=== PATIENT | female | born 1985 | race Caucasian/White ===

== ENCOUNTER → 2018-04-11 14:00 | Outpatient (CLI) | payer OTHER, SELFPAY | DX: Z23 Encounter for immunization (principal) | CPT/HCPCS: 90471; 90686 ==

== ENCOUNTER → 2018-05-04 12:47 | Outpatient (REF) | payer OTHER, SELFPAY ==
[2018-05-04 13:08] LABS: Influenza A and B by PCR Rapid Negative (Negative)
== END ==
LOC: LAB 12:47
PROVIDERS: Visit Provider Family Medicine
DX: R50.9 Fever, unspecified (principal)
CPT/HCPCS: 87400

== ENCOUNTER → 2019-03-30 12:03 | Outpatient (CLI) | payer OTHER, SELFPAY | DX: Z23 Encounter for immunization (principal) | CPT/HCPCS: 90471; 90686 ==

== ENCOUNTER → 2019-05-02 12:28 | Outpatient (CLI) | payer OTHER, SELFPAY ==
--- NOTE | 2019-05-02 | DI.RAD.S_ITS ---
PROCEDURE: XR FOOT LT MIN 3V INDICATIONS: xr lt 5th tarsal pain TECHNIQUE: A 3 views of the foot were acquired. COMPARISON: None. FINDINGS: Bones: No fractures or dislocations. No suspicious bony lesions. Soft tissues: No tibiotalar joint effusion. Achilles tendon appears normal. IMPRESSION: Normal for age, source of current pain after running symptoms is not seen. Dictated by: Torrey Farrell M.D. on 05/02/2019 at 15:37 Approved by: Torrey Farrell M.D. on 05/02/2019 at 15:37
== END ==
PROVIDERS: PCP Family Medicine; Visit Provider Family Medicine
DX: M79.672 Pain in left foot (principal)
CPT/HCPCS: 73630

== ENCOUNTER → 2020-03-13 10:01 | Outpatient (CLI) | payer OTHER, MEDICAID, SELFPAY ==
--- NOTE | 2020-03-13 | DI.US.S_ITS ---
PROCEDURE: US ABDOMEN COMPLETE INDICATIONS: abd pain TECHNIQUE: Real-time scanning was performed of the abdominal and retroperitoneal organs, with image documentation. COMPARISON: [facility], CT, KIDNEY/ URETER/BLADDER, 03/29/2015, 14:20. [facility], US, ABDOMEN COMPLETE, 07/04/2012, 11:26. FINDINGS: Liver: Liver is normal in size and homogeneous in echotexture. Gallbladder: No findings of gallstones or sludge are seen. The gallbladder wall is not thickened, measuring 3 mm or less. No specific pericholecystic fluid is seen. The sonographic Mattson sign is negative. Biliary ducts: Intrahepatic bile ducts are non-dilated. Extrahepatic bile duct caliber measures 5 mm. Normal is 6-7 mm or less in diameter, or 10 mm or less post-cholecystectomy. Pancreas: Visualized portions of the pancreas are sonographically normal. Spleen: Spleen is normal in size and homogeneous in echotexture. Kidneys: Kidneys are normal in size and echotexture. Right kidney measures 10.4 cm long; left kidney measures 9.4 cm long. No hydronephrosis or nephrolithiasis. No solid masses. At the superior aspect of the left kidney, there is a 1.5 cm hypoechoic lesion seen. Aorta: Visualized aorta is normal in caliber at less than 3 cm. Iliacs: Proximal common iliac arteries are normal in caliber at less than 2.5 cm. IVC: Intrahepatic inferior vena cava is patent. Miscellaneous: No free abdominal fluid. IMPRESSION: No imaging explanation is found for this patient's presenting history of abdominal pain. The gallbladder demonstrates a normal sonographic appearance. No biliary dilatation is seen. 1.5 cm hypoechoic lesion seen involving the left kidney. This may represent a complicated cyst. Three-month follow-up ultrasound versus renal mass protocol CT would be recommended for further evaluation. Dictated by: Chema Perry M.D. on 03/13/2020 at 14:51 Approved by: Chema Perry M.D. on 03/13/2020 at 14:53
--- NOTE | 2020-03-13 | DI.RAD.S_ITS ---
PROCEDURE: FL UPPER GI W AIR INDICATIONS: ABD PAIN COMPARISON: None. FINDINGS: KUB: Preprocedural adaptive physical educator film demonstrates a normal bowel gas pattern. No suspicious abdominal calcifications. Visualized solid organ contours appear normal. Bony structures appear unremarkable. Esophagus: Esophageal mucosa is normal on air-contrast views. On single-contrast views, there is normal esophageal peristalsis. No strictures, extrinsic mass effects, or diverticula. There is a very small sliding hiatal hernia and only a small degree of spontaneous and elicited gastroesophageal reflux was observed. There is normal transit of a calibrated barium tablet through the esophagus. Stomach: The stomach is normally distensible, with normal rugal fold thickness. No mucosal masses or ulcers. Pylorus and duodenal bulb appear normal in morphology. Duodenal folds are normal in thickness as well. IMPRESSION: Small sliding hiatal hernia, no evidence of esophageal erosion or dysmotility. Mild gastroesophageal reflux was observed associated with this finding. Dictated by: Torrey Farrell M.D. on 03/13/2020 at 11:02 Approved by: Torrey Farrell M.D. on 03/13/2020 at 11:18
== END ==
PROVIDERS: PCP Family Medicine; Referring Provider Family Medicine; Visit Provider Family Medicine
DX: R10.13 Epigastric pain (principal); N28.9 Disorder of kidney and ureter, unspecified; K21.9 Gastro-esophageal reflux disease without esophagitis; K44.9 Diaphragmatic hernia without obstruction or gangrene
CPT/HCPCS: 74246; 76700

== ENCOUNTER → 2020-05-08 09:39 | Outpatient (CLI) | payer OTHER, MEDICAID, SELFPAY ==
[2020-05-08 10:56] LABS: COVID19 -Nasal RAPID Negative (Negative)
== END ==
PROVIDERS: PCP Family Medicine; Visit Provider Physician Assistant
DX: Z11.59 Encounter for screening for other viral diseases (principal)
CPT/HCPCS: 87635

== ENCOUNTER 2020-05-10 13:24 | Day surgery (SDC) | payer OTHER, MEDICAID, SELFPAY ==
--- NOTE | 2020-05-10 | PATH_ITS ---
[facility] Accession Number: [id number] . 01 Material submitted: . PART A: duodenum - DUODENAL BIOPSY PART B: gastrointestinal site - ANTRUM BIOPSY PART C: gastrointestinal site - FUNDUS BIOPSY PART D: gastrointestinal site - BODY BIOPSY PART E: esophagus - Z-LINE BIOPSY 0600 PART F: esophagus - Z-LINE BIOPSY 0300 PART G: esophagus - Z-LINE BIOPSY 0900 . 02 Diagnosis: A. Duodenal Biopsy: Duodenal mucosa with no diagnostic abnormality. Negative for active inflammation, features of sprue, dysplasia, or malignancy. . B. Stomach, Antrum, Biopsy: Antral mucosa with mild chronic gastritis. Negative for Helicobacter by immunohistochemistry. Negative for intestinal metaplasia. Negative for dysplasia or malignancy. . C-D. Stomach, Fundus, Body, Biopsies: Body type mucosa with no diagnostic abnormality. Negative for Helicobacter by immunohistochemistry. Negative for intestinal metaplasia. Negative for dysplasia and malignancy. . E-F. Z-Line, 6 o'clock, 3 o'clock, Biopsies: Squamocolumnar junctional mucosa with no diagnostic abnormality. Negative for intestinal metaplasia. Negative for dysplasia and malignancy. . G. Z-Line, 9 o'clock, Biopsy: Columnar mucosa with no diagnostic abnormality. Negative for intestinal metaplasia. Negative for dysplasia and malignancy. [facility] 05/14/2020 1631 Local . 02 Electronically signed: . Shruthi Bernard MD, Pathologist NPI- [id number] . 01 Gross description: . Part A: DUODENAL BIOPSY: Received in formalin is 1 fragment(s) of tobin, soft tissue measuring 0.4 x 0.3 x 0.2 cm submitted entirely in 1 cassette(s) Part B: ANTRUM BIOPSY: Received in formalin is 1 fragment(s) of tobin, soft tissue measuring 0.4 x 0.2 x 0.1 cm submitted entirely in 1 cassette(s) Part C: FUNDUS BIOPSY: Received in formalin is 1 fragment(s) of tobin, soft tissue measuring 0.5 x 0.3 x 0.3 cm submitted entirely in 1 cassette(s) Part D: BODY BIOPSY: Received in formalin are 2 fragment(s) of tobin, soft tissue measuring 0.5 x 0.4 x 0.1 cm to 0.3 x 0.2 x 0.1 cm submitted entirely in 1 cassette(s) Part E: Z-LINE BIOPSY 0600: Received in formalin is 1 fragment(s) of tobin, soft tissue measuring 0.3 x 0.2 x 0.2 cm submitted entirely in 1 cassette(s) Part F: Z-LINE BIOPSY 0300: Received in formalin is 1 fragment(s) of tobin, soft tissue measuring 0.3 x 0.3 x 0.2 cm submitted entirely in 1 cassette(s) Part G: Z-LINE BIOPSY 0900: Received in formalin is 1 fragment(s) of tobin, soft tissue measuring 0.2 x 0.2 x 0.2 cm submitted entirely in 1 cassette(s) /Q 05/11/2020 0705 Local . 02 Microscopic: . B-D. Immunohistochemical stains were performed to evaluate for Helicobacter organisms on blocks B, C and D and are all negative. The control stain showed appropriate reactivity. . * This test was developed and its performance characteristics determined by [facility]. It has not been cleared or approved by the U.S. Food and Drug Administration. The FDA has determined that such clearance or approval is not necessary. This test is used for clinical purposes. It should not be regarded as investigational or for research. . 02 Pathologist provided ICD-10: R10.13 . 02 CPT . 829397, 770805, 464367, 726006, 429646, 824133, 448946, [id number] Performed at: 01 [facility] [address] [place] [address], [place], [place] [id number] MD Ricco Encarnacion MD Phone: [phone] Performed at: [address] [place] [id number] [place], [place] [id number] MD Shruthi Bernard MD Phone: [phone]
--- NOTE | 2020-05-10 11:54 | PM.HP.1 ---
History of Present Illness History of Present Illness Date Patient Seen: 05/10/20 [place] [facility] [place]: 34 Years Old Female patient of Dr. Gonzalez's seen today complaining of intermittent epigastric pain x2 months. Pain is burning in nature and associated with nausea. She sometimes feels that something is stuck in her chest. Pain happens 2 hours after she eats and lasts for 15 minutes to several hours. Eating usually helps the pain. Has become more consistent in the last few weeks. She does have a past medical history of the same and saw Dr. Motley, GI in 2017 and was treated with omeprazole with complete resolution. She just restarted limiting her coffee and is not drinking alcohol. Denies melena or hematochezia. Dr. Gonzalez restarted her omeprazole 2 months prior to presentation and she is taking 20 mg p.o. twice daily; taking it correctly on an empty stomach. Abdominal ultrasound on 03/13/2020 showed a 1.5 cm hypoechoic lesion in left kidney possibly a complicated cyst. 3-month surveillance ultrasound recommended, renal mass protocol. Overall health issues have been otherwise stable, including no major cardiac events for at least 6 weeks. Past Medical History: migraine; 2017 otitis media w/effusion; 2017, 2015 GERD; Dr. Motley; 2016 Cystic acne Genital herpes Anxiety Past Surgical History: PE tubes Oral surgery Family History: Reviewed history from 06/22/2017 and no changes required: Father: Alcoholism, Diabetes, Hep C Mother: Alcoholism, hysterectomy;pre CA cells, Drowned 2002 (patient 16 at the time) Siblings: sister with questionable anxiety. [place] in [facility] [place] [facility] [place] MGM 86 yo of old age Maunts: anxiety x 2 No bipolar Social History: Marital Status: Single Children: Kaz Ortega (2011) Occupation: [employer] Education: College bought house with partner, Branden < 1 acohol drink per day Patient History Family & Social History Tobacco & Substance use: Smoking Status Never smoker Meds Home Medications and Allergies Home Medications Medication Instructions Recorded Confirmed Type hydroxyzine HCl 10 mg tablet 10 mg PO PRN PRN 5 Days #40 tab 10/18/17 05/10/20 History norethindrone acetate 1.5 1.5 tab PO 4-6XD 63 Days #63 tab 10/18/17 05/10/20 History mg-ethinyl estradiol 30 mcg tablet alprazolam 0.25 mg tablet 0.25 mg PO BID-TID PRN 12/27/17 05/10/20 History multivitamin 1 tab PO DAILY 12/27/17 05/10/20 History buspirone 10 mg PO BID 05/10/20 05/10/20 History omeprazole 20 mg PO BID 05/10/20 05/10/20 History Allergies Allergy/AdvReac Type Severity Reaction Status Date / Time citalopram [From Celexa] AdvReac Intermediate Increased Verified 05/10/20 13:51 Anxiety Review of Systems Review of Systems ROS: Yes All systems reviewed with the patient and are negative except as otherwise documented Exam Narrative Exam Narrative: General: well developed, well nourished, in no acute distress, Head: normocephalic and atraumatic, Neck: supple, without mass or thyromegaly, Lungs: normal respiratory effort, clear bilaterally to auscultation, Heart: normal rate and regular rhythm, no murmurs, rubs, gallops, or clicks, Abdomen: Positive bowel sounds. No hepatosplenomegaly. Midepigastric tenderness but no guarding or rebound Pulses: carotid and pedal pulses are intact, Extremities: no clubbing, cyanosis, edema, or deformity noted, Skin: No rashes Assessment & Plan Assessment & Plan narrative: 1. Abdominal pain, epigastric Plan: EGD The nature and character of the procedure as well as anticipated results were discussed. The possibility of not completing the procedure was also discussed. Possible complications including aspiration pneumonia, bleeding, perforation and reaction to medications either for sedation or preparation and missed lesions were discussed. Questions were answered and proceeding to the colonoscopy was elected. Informed consent signed. I sincerely appreciate the referral allowing me to participate in this patient's care. Please contact me with any questions or concerns.
--- NOTE | 2020-05-10 11:58 | P.OP.ENDO_ITS ---
Operative Date/Time/Diagnoses Date of procedure: 05/10/20 Procedure Notes SCOAP/Timeout: 2:36 p.m. Procedure in detail: ENDOSCOPIST: Rosenda Sandoval MD Sedation RN: Demetrio Boland RN Sedation start time: 2:37 p.m. Sedation end time: 3:04 p.m. PROCEDURE: EGD with biopsy REFERRING PROVIDER: Dr. Gonzalez INDICATIONS: 1. Epigastric abdominal pain MEDICATION: Incremental doses of Versed and fentanyl until an appropriate level of sedation was achieved. ASA Ratin DURATION OF PROCEDURE: 9 minutes. COMPLICATIONS: None. LIMITATIONS: None EXTENT OF PROCEDURE: Third portion of the Duodenum. PROCEDURE: The high-definition gastroduodenoscope was introduced into the posterior oropharynx under direct vision after Hurricaine spray, noted IV sedation, and proper informed consent. The esophagus was identified and intubated under direct visualization. The scope was quickly passed through the esophagus and into the fundus of the stomach. A clear fundal pool was aspirated. The scope was then advanced to the antrum and the pylorus was identified. The scope was passed through the pylorus into the second and third portions of the duodenum. No abnormalities were noted in the duodenum, duodenal bulb or pyloric channel. Random biopsies taken x2. The antrum was erythematous and friable, targeted biopsy taken x2. J maneuver was produced. No abnormalities were noted of the proximal body, fundus or cardia. Targeted biopsy taken x2. A small hiatal hernia was noted. Scope was broken out of the J maneuver and the remainder of the stomach was carefully inspected upon withdrawal and was friable, targeted biopsy taken x2. The stomach was carefully deflated of all air on withdrawal. The distal esophagus was carefully inspected and Z-line was noted to be irregular, 3 quadrant biopsies taken. Top of the gastric folds noted at 47 cm from the incisors; circumferential extent of the metaplasia was 46 cm from the incisors; maximal extent of the metaplasia was 46 cm from the incisors. The remainder of the esophagus was normal upon withdrawal. The larynx and vocal cords appeared to be unremarkable. IMPRESSION: 1. Gastritis 2. Hiatal hernia, small 2. Endoscopically suspected esophageal mucosa, C1M1 PLAN: 1. Follow-up in clinic status post pathology results. The possibility of missed lesion including a malignancy was discussed prior with the patient. Potential alarm symptoms have been discussed and should be reported by the pat ient immediately.
[2020-05-10 13:43] VITALS: BP 120/78; PULSE 93; RESP 18; TEMP 36.9; O2SAT 98; BMI 23.3
[2020-05-10] MEDS: LACTATED RINGERS 1,000 ML 200 ML IV (13:58)
[2020-05-10 14:06] VITALS: BMI 23.3
[2020-05-10] MEDS: LIDOCAINE 4% SOLN 50 ML 20 ML TOP (14:36)
[2020-05-10] MEDS: LIDOCAINE JELLY 2% 5 ML 1 APPLIC TOP (14:36)
[2020-05-10] MEDS: fentaNYL 250 MCG/5 ML INJ IV (14:54)
[2020-05-10] MEDS: MIDAZOLAM 5 MG/5 ML VIAL IV (14:54)
[2020-05-10 15:10] VITALS: BP 128/50; PULSE 89; RESP 23; TEMP 36.2; O2SAT 97
[2020-05-10 15:15] VITALS: BP 113/71; PULSE 83; RESP 17; TEMP 35.7; O2SAT 97
[2020-05-10 15:19] VITALS: BP 126/77; PULSE 86; RESP 13; TEMP 37; O2SAT 98
[2020-05-10 15:24] VITALS: BP 122/86; PULSE 76; RESP 15; TEMP 37.2; O2SAT 98
[2020-05-10 15:25] VITALS: BP 118/78; PULSE 84; RESP 13; TEMP 36.7; O2SAT 98
== END 2020-05-10 15:25 | disposition home or self-care (01) ==
PROVIDERS: PCP Family Medicine; Referring Provider Family Medicine; Visit Provider Student in an Organized Health Care Education/Training Program
PROC: 0DJ08ZZ Inspection of Upper Intestinal Tract, Via Natural or Artificial Opening Endoscopic (ICD-10-PCS; CPT 43235; principal; 2020-05-10 14:30)
DX: K29.50 Unspecified chronic gastritis without bleeding (principal); K44.9 Diaphragmatic hernia without obstruction or gangrene
CPT/HCPCS: 43239; J2250; J3010

== ENCOUNTER → 2020-07-04 08:31 | Outpatient (CLI) | payer OTHER, MEDICAID, SELFPAY ==
[2020-07-04] MEDS: COVID-19 VACC #1, MRNA(MOD) 100 MCG/0.5 ML VIAL IM (08:35)
== END ==
PROVIDERS: PCP Family Medicine; Visit Provider Internal Medicine
DX: Z23 Encounter for immunization (principal)
CPT/HCPCS: 0011A; 91301

== ENCOUNTER → 2020-08-01 08:26 | Outpatient (CLI) | payer OTHER, MEDICAID, SELFPAY ==
[2020-08-01] MEDS: COVID-19 VACC #2, MRNA(MOD) 100 MCG/0.5 ML VIAL IM (08:32)
== END ==
PROVIDERS: PCP Family Medicine; Visit Provider Internal Medicine
DX: Z23 Encounter for immunization (principal)
CPT/HCPCS: 0012A; 91301

== ENCOUNTER → 2020-12-06 09:28 | Outpatient (CLI) | payer OTHER, MEDICAID, SELFPAY ==
--- NOTE | 2020-12-06 | DI.US.S_ITS ---
PROCEDURE: US OB <= 14 WEEKS FETUS INDICATIONS: INITIAL SIZING AND DATING OUTSIDE/PRIOR DATING DATA: Last menstrual period (LMP): 10/11/2020 LMP-based estimated date of delivery (JOSEFA): 07/18/2021. First dating scan (date and location): 12/06/2020. Estimated date of delivery (JOSEFA) from first dating scan: 07/19/2021. TECHNIQUE: Real-time scanning was performed of the fetus and maternal pelvic organs, with image documentation. Endovaginal scanning was also performed to better visualize the fetus and maternal ovaries. COMPARISON: None. FINDINGS: Embryo: 1.5 cm corresponding to 7 weeks 6 days. Small perigestational sac bleed site measuring 2.0 x 0.6 x 1.3 cm. Heart rate: 163 Measurement variability in dating: +/- 4 weeks by LMP, +/- 7 days by mean sac diameter (use before 6 weeks gestation if crown-rump length not able to be measured), +/- 5 days by crown-rump length (up to 8 weeks 6 days gestation), +/- 7 days by crown-rump length (up to 13 weeks 6 days gestation). Maternal organs: Ovaries within normal limits . IMPRESSION: 7 week 6 day single living IUP. Dictated by: Ted VALENCIA Interpreted: Simone Pina MD on 12/06/2020 at 11:42 Transcribed by: NICOLE on 12/06/2020 at 11:44 Approved by: Simone Pina M.D. on 12/06/2020 at 13:33
== END ==
PROVIDERS: PCP Family Medicine; Referring Provider Family Medicine; Visit Provider Family Medicine
DX: Z36.87 Encounter for antenatal screening for uncertain dates (principal); Z3A.01 Less than 8 weeks gestation of pregnancy
CPT/HCPCS: 76801; 76817

== ENCOUNTER → 2021-02-07 09:28 | Outpatient (CLI) | payer OTHER, MEDICAID, SELFPAY ==
--- NOTE | 2021-02-07 | DI.US.S_ITS ---
PROCEDURE: US OB LIMITED INDICATIONS: RULE OUT PLACENTA DETACHMENT. HISTORY OF LABOR. OUTSIDE/PRIOR DATING DATA: Last menstrual period (LMP): 10/11/20 . LMP-based estimated date of delivery (JOSEFA): 07/18/21 . First dating scan (date and location): 12/06/20 . Estimated date of delivery (JOSEFA) from first dating scan: 07/19/21. TECHNIQUE: Real-time scanning was performed of the fetus for biophysical profile, with image documentation. Color and pulse Doppler interrogation was also performed of the umbilical artery near its insertion into the placenta. Endovaginal scanning: Performed COMPARISON: [facility], US OB <= 14 WEEKS FETUS, 12/06/2020, 9:12. [facility], US ABDOMEN COMPLETE, 03/13/2020, 10:51. [facility], [facility], 08/26/2011, 15:36. FINDINGS: Anterior uterine fibroid measures 1.2 x 1.1 x 0.7 cm. General: A single living intrauterine gestation is present. Presentation: Vertex. Placenta: Placental position is anterior and there is complete placenta previa. Amniotic fluid index: 12.5 cm, normal range is 5-24 cm. heart rate: 153 beats per minute. Maternal cervical canal: 6.0 cm long. Normal lower limit is 2.5 cm. Estimated gestational age from initial scan: 16 weeks 6 days . Single wrap nuchal cord incidentally noted. Umbilical artery Doppler: Measures 2.4, 3.0, 3.1 . IMPRESSION: Single living intrauterine fetus in vertex presentation Complete placenta previa. Recommend follow-up. Nuchal cord. Recommend follow-up. No evidence of placental abruption. Incidentally noted anterior uterine fibroid. Findings (including all critical results) and recommendations were personally telephoned and discussed with Dr. Perez none on 02-07-21 12:34 Dictated by: Fabrizio Cruz M.D. on 02/07/2021 at 12:29 Approved by: Fabrizio Cruz M.D. on 02/07/2021 at 12:35
== END ==
PROVIDERS: PCP Family Medicine; Referring Provider Family Medicine; Visit Provider Family Medicine
DX: Z36.86 Encounter for antenatal screening for cervical length (principal); O44.02 Complete placenta previa NOS or without hemorrhage, second trimester; O34.12 Maternal care for benign tumor of corpus uteri, second trimester; D25.9 Leiomyoma of uterus, unspecified; Z3A.16 16 weeks gestation of pregnancy; Z87.51 Personal history of pre-term labor
CPT/HCPCS: 76815; 76817

== ENCOUNTER → 2021-05-20 07:55 | Outpatient (CLI) | payer OTHER, MEDICAID, SELFPAY ==
--- NOTE | 2021-05-20 07:56 | DI.US.S_ITS ---
PROCEDURE: US OB LIMITED INDICATIONS: GROWTH. FOLLOW UP NUCHAL CORD AND COMPLETE PREVIA. OUTSIDE/PRIOR DATING DATA: Last menstrual period (LMP): 10/11/2020 LMP-based estimated date of delivery (JOSEFA): 07/18/2021. First dating scan (date and location): 12/06/2020. Estimated date of delivery (JOSEFA) from first dating scan: 07/19/2021 The calculations are made using the ultrasound JOSEFA of 07/19/2021. TECHNIQUE: Real-time scanning was performed of the fetus, with image documentation and biometric measurements. Endovaginal scanning: No COMPARISON: Outside Facility, , OB > 14 WEEKS, 02/28/2021, 9:15. [facility], , OB LIMITED, 02/07/2021, 10:31. FINDINGS: General: A single living intrauterine gestation is present. Presentation: Vertex. Placenta: Placental position is anterior , without previa. Amniotic fluid index: 16.3 cm, normal range is 5-24 cm. heart rate: 137 beats per minute. Maternal cervical canal: 5.3 cm long. Normal lower limit is 2.5 cm. biometrics: Biparietal diameter: 30 weeks 1 day Head circumference: 29 weeks 5 days Abdominal circumference: 31 weeks 2 days Femur length: 30 weeks Clinically estimated gestational age: 31 weeks 3 days Composite gestational age from present scan: 30 weeks 2 days Estimated weight and percentile: 16 18 g; 17 percentile Other: No nuchal cord identified. IMPRESSION: 1. Single living IUP redemonstrated and interval growth is normal. 2. No nuchal cord and complete placenta previa has resolved. We strive to produce accurate, complete, and clear reports of imaging services. To assist us in improving patient care, this report was composed using standard report templates and voice recognition software. Therefore, it may contain abnormal punctuation, insertions and/or omissions. Occasional wrong-word or sound-alike substitutions may occur. Though we review the report and make efforts to correct it, we do recommend that the report be read carefully in proper context to recognize any text inaccuracies. Dictated by: Ted VALENCIA Interpreted: Simone Pina MD on 05/20/2021 at 9:42 Transcribed by: NICOLE on 05/20/2021 at 9:45 Approved by: Simone Pina M.D. on 05/20/2021 at 12:12
== END ==
PROVIDERS: PCP Family Medicine; Referring Provider Family Medicine; Visit Provider Family Medicine
DX: Z36.89 Encounter for other specified antenatal screening (principal); O44.13 Complete placenta previa with hemorrhage, third trimester; Z3A.30 30 weeks gestation of pregnancy
CPT/HCPCS: 76815

== ENCOUNTER 2021-05-29 13:41 | Outpatient (CLI) | payer OTHER, MEDICAID, SELFPAY | END 2021-05-29 14:26 | disposition home or self-care (01) | LOC: LABOR 14:11 → OB 06-02 09:45 | PROVIDERS: PCP Family Medicine; Referring Provider Family Medicine; Visit Provider Family Medicine | DX: O60.03 Preterm labor without delivery, third trimester (principal); Z3A.33 33 weeks gestation of pregnancy | CPT/HCPCS: 59025; G0378; G0379 ==

== ENCOUNTER → 2021-06-23 14:20 | Outpatient (CLI) | payer OTHER, MEDICAID, SELFPAY ==
[2021-06-24 12:10] LABS: Strep Grp B PCR NEG for Grp B Strep
== END ==
PROVIDERS: PCP Family Medicine; Referring Provider Obstetrics & Gynecology; Visit Provider Obstetrics & Gynecology
DX: Z34.83 Encounter for supervision of other normal pregnancy, third trimester (principal); Z3A.36 36 weeks gestation of pregnancy
CPT/HCPCS: 87653

== ENCOUNTER 2021-07-04 11:48 | Outpatient (CLI) | payer OTHER, MEDICAID, SELFPAY ==
--- NOTE | 2021-07-04 12:24 | PM.OBTRLD ---
Visit Information Visit Information Date of evaluation: 07/04/21 Primary OB Provider: Neda Zimmerman On-call OB Provider: Bijal Arguello Reason for Evaluation: Yes rupture of membranes Comments/Additional reasons for admission: 35yo at 38w2d here for concern for ROM. Feeling baby move regularly. No contractions, vaginal bleeding. [facility] Medical History (Updated 07/04/21 @ 12:26 by Bijal Arguello MD) Herpes (~2018) Hiatal hernia (~2019) delivery, delivered labor Surgical History (Updated 05/22/21 @ 10:26 by Samreen Brennan, RN) H/O endoscopy (~2019) [place] teeth extracted Family History (Updated 05/22/21 @ 10:31 by Samreen Brennan, RN) Father Diabetes mellitus Melanoma Mother Ovarian cancer History of hysterectomy Sister Anxiety Grandfather Hypertension Hyperlipidemia Hx of CABG Myocardial infarct Grandmother Cancer Hyperlipidemia Grandmother Leukemia Grandfather Family history unknown Social History marital status: unmarried,living together number of children: 1 household members: significant other and children (2 step children and 1 child of their own.) lives independently: Yes caregiver/support person: No housing: house pets and animals: Yes (2 cats, 1 dog: aware/safe.) education level: college (Just finished nursing degree. 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 ) substance use type: does not use during the past year weight has: increased > 10 lbs well-balanced diet: daily or most days daily servings fruits/ve or more times/day (lots: her favorite snacks are produce. ) caffeine: Yes (1 cup of tea.) Type(s) of exercise: decreased ROM & activity (modified bedrest for labor.) frequency: daily Evaluation Evaluation Baseline heart rate: 130 Variability: Moderate (11-25) monitor accelerations: Present Monitor Decelerations: Absent Non-invasive Membranes Rupture Test: negative Diagnosis, Plan/Disposition Final Diagnosis (1) 38 weeks gestation of : Status: Acute Plan/Disposition Plan: 35yo at 38w2d here for concern for ROM. Amniosure negative. NST reactive. Initial BP slightly elevated, normalized on repeat. Stable for d/c home. OB Disposition: home
== END 2021-07-04 12:35 ==
LOC: LABOR 12:34 → OB 07-09 13:59
PROVIDERS: PCP Family Medicine; Referring Provider Obstetrics & Gynecology; Visit Provider Obstetrics & Gynecology
DX: Z03.71 Encounter for suspected problem with amniotic cavity and membrane ruled out (principal); O47.1 False labor at or after 37 completed weeks of gestation; Z3A.39 39 weeks gestation of pregnancy
CPT/HCPCS: 59025; 84112; G0378; G0379

== ENCOUNTER 2021-07-09 02:02 | Inpatient (IN) | payer OTHER, MEDICAID, SELFPAY ==
[2021-07-09 04:08] LABS: COVID19 - ADMIT (NP swab/PCR) Negative (Negative)
[2021-07-09] MEDS: fentaNYL 100 MCG/2 ML INJ IV (04:55)
[2021-07-09 05:14] LABS: Add Manual Diff / Slide Review NO; Basophils Absolute Auto 0 /uL (0-100); Basophils Percent Auto 0.2 % (0-2); Eosinophils Absolute Auto 100 /uL (0-450); Eosinophils Percent Auto 0.4 % (2-4); Hematocrit 39.2 % (36-46); Hemoglobin 13.3 g/dL (12.0-16.0); Lymphocytes Absolute Auto 1800 /uL (1100-4500); Lymphocytes Percent Auto 8.4 % (25-40); Mean Corpuscular HGB Conc 33.8 % (30-36); Mean Corpuscular Hemoglobin 30.6 PG (26-34); Mean Corpuscular Volume 90.6 fL (80-100); Monocytes Absolute Auto 1500 /uL (0-900); Monocytes Percent Auto 6.7 % (3-14); Neutrophils Absolute Auto 18400 /uL (1500-7000); Neutrophils Percent Auto 84.3 % (50-75); Platelet Count 227 X10^3/uL (150-400); Red Blood Cell Count 4.33 X10^6/uL (4.0-5.2); Red Cell Distribution Width 13.6 % (11.6-14.8); White Blood Cell Count 21.8 X10^3/uL (4.5-11.0)
[2021-07-09] MEDS: LACTATED RINGERS 1,000 ML 100 ML IV ×2 (05:30→09:45)
--- NOTE | 2021-07-09 05:43 | PM.AN.REGBLK ---
[facility] Pre-procedure Procedure: Continuous Lumbar Epidural for L&D Attending OB provider: Neda Zimmerman PMH/ROS narrative: term labor, h/o labor on modified bed rest, no other complications ASA Class: II Labs: Hct 39.2 % (36-46) 07/09/21 04:00 Plt Count 227 X10^3/uL (150-400) 07/09/21 04:00 Medications: Current Medications Generic Name Dose Route Start Last Admin Trade Name Freq PRN Reason Stop Dose Admin Carboprost Tromethamine 250 mcg 07/09/21 04:15 Carboprost 250 Mcg/Ml Ampul IM Q90M PRN Bleeding Fentanyl 100 mcg 07/09/21 04:15 07/09/21 04:55 Fentanyl 100 Mcg/2 Ml Inj IV 100 mcg Q1H PRN Administration Pain, Severe (7-10) Lactated Ringer's 1,000 mls @ 100 mls/hr 07/09/21 04:15 Lactated Ringers IV CONT KASH Oxytocin/Lactated Ringer's 30 unit in 500 mls @ 200 mls/hr 07/09/21 04:15 Oxytocin Premix IV CONT PRN Bleeding Protocol Tranexamic Acid 1,000 mg/ 100 mls @ 200 mls/hr 07/09/21 04:15 Sodium Chloride IV NOW PRN Bleeding Methylergonovine Maleate 0.2 mg 07/09/21 04:15 Methylergonovine 0.2 Mg Tablet PO Q6HR PRN Heavy Bleeding Methylergonovine Maleate 0.2 mg 07/09/21 04:15 Methylergonovine 0.2 Mg/Ml Vial IM NOW PRN Bleeding Misoprostol 800 mcg 07/09/21 04:15 Misoprostol 200 Mcg Tablet GA NOW PRN Bleeding Misoprostol 1,000 mcg 07/09/21 04:15 Misoprostol 200 Mcg Tablet GA NOW PRN Bleeding Misoprostol 400 mcg 07/09/21 04:15 Misoprostol 200 Mcg Tablet SL NOW PRN Bleeding Naloxone HCl 0.2 mg 07/09/21 04:15 Naloxone 0.4 Mg/Ml Vial IV Q2MIN PRN Opiate Reversal Oxytocin 10 unit 07/09/21 04:15 Oxytocin 10 Unit/Ml Vial IM NOW PRN Bleeding Allergies: Allergies Allergy/AdvReac Type Severity Reaction Status Date / Time citalopram [From Celexa] AdvReac Intermediate Increased Verified 07/08/21 15:27 Anxiety Procedure Insertion date: 07/09/21 Insertion time: 06:01 Prep/Local: betadine x3 and 1% lidocaine Interspace: L3-4 Patient position: sitting Needle: 18 gauge Hustead (CSE: 27g Pencan through Hustead, clear CSF, 1mL 0.25% MPF bupiv) Loss of resistance with: saline BHARAT at (cm): 4 Catheter placed at SKIN (cm): 9 Catheter in SPACE (cm): 5 Insertion: No CSF, No Blood, No Paresthesia with insertion, No Paresthesia with injection and No Test dose reaction Initial Medications TEST DOSE time: 05:57 TEST DOSE: 1.5% lidocaine with epinephrine 1:200k (mL): 557 BOLUS DOSE time: 06:10 BOLUS DOSE (mL): 3 BOLUS DOSE med: other (infusate) Infusion INFUSION: 0.125% bupivacaine and with fentanyl 2 mcg/mL Initial rate (mL/hr): 6 Subsequent interventions: 1020: clinician bolus 5mL, increased rate from 6 to 8ml/h for R sided moderate discomfort with contractions. Pt repositioned R side down. Post-procedure Anesthesia time START: 05:47 Anesthesia time END: 15:21 Post-procedure Anesthesia Assessment: Yes CV function: HR/BP stable, Yes Resp function: RR/sat/airway adequate, Yes Mental status appropriate and No Anesthesia complications
[2021-07-09 05:57] VITALS: BP 139/90
[2021-07-09] MEDS: ACETAMINOPHEN 325 MG TABLET 650 MG PO ×2 (10:37→17:44)
[2021-07-09] MEDS: OXYTOCIN PREMIX 30 UNIT/500 ML PLAST..BAG IV (13:04)
[2021-07-09] MEDS: FENT 2MCG/ML BUPIV 0.125% EPI 200 MCG/100 ML PLAST..BAG 8 MCG EPIDURAL (13:54)
[2021-07-09] MEDS: DERMOPLAST SPRAY 20% 60 ML 1 SPRAY TOP (17:44)
[2021-07-09] MEDS: IBUPROFEN 600 MG TABLET PO (17:45)
--- NOTE | 2021-07-09 17:49 | P.HPOB_ITS ---
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 Estimated Delivery Date Method Current WG Current Estimate 07/16/21 LMP (Certain) 39w 0d Estimated Gestational Age (weeks): 39 : 3 Para: 1 care: good care, initiated at week # (9), number of visits (12) and pounds weight gain (34) Dating criteria OB: LMP confirmed by 1st trimester US Ultrasounds: normal 1st trimester US and normal mid trimester US Obstetrical complications: none Medical complications OB: none Preadmission Labs Last OB Lab Results: Blood Type O Negative 07/09/21 04:00 07/09/21 Antibody Screen Negative 07/09/21 04:00 07/09/21 Hematocrit 39.2 % (36-46) 07/09/21 04:00 07/09/21 Hemoglobin 13.3 g/dL (12.0-16.0) 07/09/21 04:00 07/09/21 Group B Streptococcus (PCR) Neg for grp b strep 06/23/21 14:20 06/23/21 -: Chlamydia screen: negative, Gonorrhea screen: negative and Urine: negative -: PAP smear: Normal Genetic Screens: Quad screen: Normal External Labs Blood type OB HPI: 0 (-) negative HCT: 39 -: Antibody screen: negative, HBsAG: negative, HIV: negative, RPR/VDLR: negative, Chlamydia screen: negative, Gonorrhea screen: negative, GBS status: negative and Urine: negative -: Rubella: immune and Varicella: immune HCAB: negative PAP: Normal Genetic Screens: Quad screen: Normal Prior (ies) Past Pregnancies Del. Date GA/Weeks Labor Lgth Wt Sex Route Outcome Anesthesia Place Delv Breastfeed Preg Comp Name 08/05/04 elective elective 09/10/11 35 12 5 lb 4 oz Male vaginal live - none [facility] 18 mos. delivery labor [place] Delivery Date: 08/05/04 Last Updated by: Samreen Brennan R.N. Surgical termination, no complications. Delivery Date: 09/10/11 Last Updated by: Samreen Brennan R.N. On full bedrest r/t PTL starting ~31wga. SROM at 35wks, transferred d/t gestation. Labor progressed well until pitocin augmention later. Baby & mom did well at . Evaluation Evaluation Baseline heart rate: 135 Variability: Moderate (11-25) monitor accelerations: Present Monitor Decelerations: Absent Contraction Frequency (minutes): 3 Uterine Contraction Intensity: Strong/Firm Status: Category l Dilation (cm): 8 Effacement (%): 85 station: -1 Position of cervix: posterior Consistency: soft PFSH Medical History (Updated 07/07/21 @ 09:38 by Neda Zimmerman MD) Herpes (~2018) Hiatal hernia (~2019) delivery, delivered labor Surgical History (Updated 05/22/21 @ 10:26 by Samreen Brennan RN) H/O endoscopy (~2019) [place] teeth extracted Family History (Updated 05/22/21 @ 10:31 by Samreen Brennan RN) Father Diabetes mellitus Melanoma Mother Ovarian cancer History of hysterectomy Sister Anxiety Grandfather Hypertension Hyperlipidemia Hx of CABG Myocardial infarct Grandmother Cancer Hyperlipidemia Grandmother Leukemia Grandfather Family history unknown Social History marital status: unmarried,living together number of children: 1 household members: significant other and children (2 step children and 1 child of their own.) lives independently: Yes caregiver/support person: No housing: house pets and animals: Yes (2 cats, 1 dog: aware/safe.) education level: college (Just finished nursing degree. 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 ) substance use type: does not use during the past year weight has: increased > 10 lbs well-balanced diet: daily or most days daily servings fruits/ve or more times/day (lots: her favorite snacks are produce. ) caffeine: Yes (1 cup of tea.) Type(s) of exercise: decreased ROM & activity (modified bedrest for labor.) frequency: daily Meds Home Medications and Allergies Home Medications Medication Instructions Recorded Confirmed Type hydroxyprogesterone cap(ppres) 250 250 mg IM QWEEK 05/22/21 07/09/21 History mg/mL IM oil prenat.vits,francisco j,[id number] 1 tab PO DAILY 05/22/21 07/09/21 History valacyclovir 500 mg tablet 500 mg PO DAILY 05/22/21 07/09/21 History Allergies Allergy/AdvReac Type Severity Reaction Status Date / Time citalopram [From Celexa] AdvReac Intermediate Increased Verified 07/08/21 15:27 Anxiety OB Exam Narrative Exam Narrative: Generally: Patient comfortable with epidural Fundal height: 39 cm Estimated weight: 7-1/2 lb Extremities: No edema Objective Labs Result Diagrams: 07/09/21 04:00 Labs: Laboratory Results - last 24 hr 07/09/21 07/09/21 07/09/21 03:27 04:00 04:00 WBC 21.8 H RBC 4.33 Hgb 13.3 Hct 39.2 MCV 90.6 MCH 30.6 MCHC 33.8 RDW 13.6 Plt Count 227 Neut % (Auto) 84.3 H Lymph % (Auto) 8.4 L [place] % (Auto) 6.7 Eos % (Auto) 0.4 L Baso % (Auto) 0.2 Neut # (Auto) 07826 H Lymph # (Auto) 1800 [place] # (Auto) 1500 H Eos # (Auto) 100 Baso # (Auto) 0 SARS-CoV-2 (PCR) Negative Blood Type O Negative Antibody Screen Negative Assessment and Plan Assessment and Plan Assessment and Plan narrative: Assessment: 35-year-old 3 para 1 at 39 weeks gestation in active labor Spontaneous rupture of membranes at 3:15 a.m. Comfortable with epidural Plan: Expected management to spontaneous vaginal to the Time Spent with Patient Total time spent with greater than 50% in coordination of care (as documented) at patient's floor/unit and/or counseling patient:: 15-24 minutes
--- NOTE | 2021-07-09 17:54 | PM.OBPNLAB ---
Date/Time Date Patient Seen: 07/09/21 Time Patient Seen: 08:50 Pain Control Pain control: epidural Pelvic Exam Dilation (cm): 9 Effacement (%): 85 station: -1 Contractions Monitor mode: External Contraction frequency (min): 3 Contraction pattern: Regular Contraction intensity: Strong/Firm Status status: Category l Heart Rate Baseline: 135 Monitor Accelerations: Present Monitor Decelerations: Absent Monitor Variability: Moderate Assessment and Plan Assessment: active labor Comments: Side to side position changes
--- NOTE | 2021-07-09 17:57 | PM.OBPNLAB ---
Date/Time Date Patient Seen: 07/09/21 Time Patient Seen: 12:45 Pain Control Pain control: epidural Pelvic Exam Dilation (cm): 9 Effacement (%): 90 station: 0 Contractions Contractions on admission: regular Monitor mode: External Contraction frequency (min): 3 Contraction pattern: Regular Contraction intensity: Strong/Firm Status status: Category l Heart Rate Baseline: 135 Monitor Accelerations: Present Monitor Decelerations: Absent Monitor Variability: Moderate Assessment and Plan Assessment: active labor Plan: begin patient augmentation
--- NOTE | 2021-07-09 17:58 | P.PCNOB_ITS ---
Labor & Delivery Delivery date: 07/09/21 Intrapartal Events: Prolonged Active Phase Cervical ripening method: none Induction method: none Delivery augmentation: pitocin Delivery monitor: external FHT and external uterine Route of delivery: Episiotomy description: None L&D Laceration Description: Vaginal - 1st Degree and Superficial (left labial) Delivery repair: chromic Estimated blood loss (mL): 100 Anesthesia Type: Epidural Complications: None Narrative: Patient complete and pushed for little over an hour. At 3:21 p.m., a live female infant delivered spontaneously over an intact perineum. No nuchal cord. The remainder of the body delivered with a little difficulty due to tight vaginal introitus. The infant was placed on mom's abdomen. The cord was double clamped and cut after it stopped pulsing. Cord bloods were obtained. The placenta delivered intact at 1531. Pitocin was given in the IV fluids. The fundus was massaged to firm. A first-degree vaginal laceration and a sup erficial left labial laceration were repaired in the usual fashion with chromic suture. Apgars 9 at 1 minute and 9 at 5 minutes. Weight 6 lb 14 oz. . Epidural analgesia. Mom and stable to recovery. Baby 1: Infant gender: Female Presentation: vertex Position: Right Occiput Anterior Placenta delivery description: Spontaneous Cord Vessel Description: 3 Vessels and Clamped/Cut score (1 min): 9 score (5 min): 9 weight: 6 lb 14 oz Plan for aftercare: Routine care
[2021-07-10] MEDS: ACETAMINOPHEN 325 MG TABLET 650 MG PO ×2 (01:25→10:18)
[2021-07-10] MEDS: IBUPROFEN 600 MG TABLET PO ×3 (01:26→14:32)
[2021-07-10 07:48] LABS: Hematocrit 35.6 % (36-46); Hemoglobin 12.1 g/dL (12.0-16.0)
[2021-07-10] MEDS: DOCUSATE 100 MG CAPSULE PO (08:36)
[2021-07-10] MEDS: PRENATAL VIT,CALC/IRON/FOLIC 1 TABLET 1 TAB PO (08:36)
[2021-07-10] MEDS: RHO(D) IMMUNE GLOBULIN 1,500 UNIT SYRINGE 1500 UNIT IM (10:18)
[2021-07-10 16:31] VITALS: BP 110/83; PULSE 94; RESP 16; TEMP 37
--- NOTE | 2021-07-11 12:48 | P.DS_ITS ---
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 She had a spontaneous rupture of membranes several hours after arrival. She received an epidural for pain management. She received Pitocin augmentation of labor. She had a prolonged first stage of labor but progressed to complete dilation and pushed for 1 hour and 20 minutes. She had a spontaneous vaginal delivery without complication. Her course was unremarkable and she was discharged home on day # 1. Peripartum Data Delivery Method: Natural Vaginal Laceration Description: Vaginal - 1st Degree and Labial (Left, superficial) Episiotomy description: None Procedures: Epidural analgesia Pitocin augmentation of labor Spontaneous vaginal delivery Vaginal and labial laceration repair complications: none [place] 1: Gender: Female Disposition of : home Status at Discharge Cognitive/behavioral status at discharge: oriented Functional status at discharge: independent ambulation Overall status at discharge: patient is progressing back to baseline Time Spent with Patient Time attestation: Total time spent providing and/or coordinating discharge services: Time spent: Less than 30 minutes Objective Labs Result Diagrams: 07/10/21 06:49 Exam Narrative Exam Narrative: Generally: Patient is sitting up in bed, holding infant, no acute distress Fundus: Firm at U -1 Extremities: Trace edema, negative [place] Discharge Plan Discharge Plan Patient Disposition: Home Provider Discharge Comment: Call with fever, chills or bleeding vaginally more than a pad in an hour Discharge orders & Medications Prescriptions: Continued prenat.vits,francisco j,[id number] Tablet 1 tab PO DAILY 0RF Discontinued valacyclovir 500 mg tablet 500 mg PO DAILY 0RF hydroxyprogesterone cap(ppres) 250 mg/mL oil 250 mg IM QWEEK 0RF Follow up/Referrals: Neda Zimmerman MD [Physician] - (Your 6 week follow up appointment with Dr. Zimmerman is scheduled for August 18 @ 2:30pm.) Diet/Activity/Treatments Diet: Regular Activity: No intercourse Skin/Wound/Dressing Care Report to your healthcare provider any signs of infection, such as:: chills, fever, increased pain and unusual drainage Visit Report/Discharge Packet Instructions: DI for Labor and Delivery, Vaginal Stand Alone Forms: Discharge: Care Discharge Data Primary Care Provider: Pebbles Gonzalez
== END 2021-07-10 17:37 | disposition home or self-care (01) | DRG 560 ==
PROVIDERS: Family Medicine; Admitting Provider Obstetrics & Gynecology; PCP Family Medicine; Referring Provider Obstetrics & Gynecology; Visit Provider Obstetrics & Gynecology
DX: O98.52 Other viral diseases complicating childbirth (principal); B00.9 Herpesviral infection, unspecified; O70.0 First degree perineal laceration during delivery; Z37.0 Single live birth; O63.0 Prolonged first stage (of labor); Z3A.39 39 weeks gestation of pregnancy; Z20.822 Contact with and (suspected) exposure to COVID-19
CPT/HCPCS: 01967; 36415; 59050; 59409; 76815; 85014; 85018; 85025; 85461; 86850; 86900; 86901; 87635; C9803; G0379; J2590; J2790; J3010

== ENCOUNTER → 2022-07-28 06:47 | Outpatient (CLI) | payer OTHER, MEDICAID, SELFPAY ==
--- NOTE | 2022-07-28 | DI.US.S_ITS ---
PROCEDURE: US PELVIC COMPLETE INDICATIONS: 1 YEAR POST ; DUB X 1 MONTH TECHNIQUE: Real-time scanning was performed of the pelvic organs, with image documentation. Additional endovaginal scanning was necessary due to incomplete visualization of the adnexal and endometrial structures by transabdominal scanning. COMPARISON: None. FINDINGS: Uterus: Uterus is anteverted and normal in size at 8.0 x 5.0 x 7.0 cm. The myometrium is homogeneous. The endometrium measures 6.6 mm combined thickness. Ovaries: The right ovary measures 1.8 x 2.9 x 2.2 cm, with a calculated ovarian volume of 5.9 cc. The left ovary measures 1.9 x 2.2 x 1.1 cm, with a calculated ovarian volume of 2.4 cc. The ovaries have a normal sonographic appearance. Less than 12 follicles can be seen in each ovary. No adnexal masses are seen. There is a right simple cyst which measures 1.9 cm in diameter. Other: No pathologic free abdominal or pelvic fluid. IMPRESSION: 1. Right ovarian simple cyst which is within physiologic limits in a premenopausal female. 2. No sonographic abnormalities to explain patient's symptoms. We strive to produce accurate, complete, and clear reports of imaging services. To assist us in improving patient care, this report was composed using standard report templates and voice recognition software. Therefore, it may contain abnormal punctuation, insertions and/or omissions. Occasional wrong-word or sound-alike substitutions may occur. Though we review the report and make efforts to correct it, we do recommend that the report be read carefully in proper context to recognize any text inaccuracies. Dictated by: Maria D Nelson M.D. on 07/28/2022 at 8:34 Approved by: Maria D Nelson M.D. on 07/28/2022 at 8:36
== END ==
PROVIDERS: PCP Family Medicine; Referring Provider Family Medicine; Visit Provider Family Medicine
DX: N92.1 Excessive and frequent menstruation with irregular cycle (principal); N83.291 Other ovarian cyst, right side
CPT/HCPCS: 76830; 76856

== ENCOUNTER → 2023-04-14 | Outpatient (CLI) | payer OTHER, SELFPAY | PROVIDERS: Referring Provider Family Medicine; Visit Provider Family Medicine | DX: Z23 Encounter for immunization (principal) | CPT/HCPCS: 90471; 90686 ==

== ENCOUNTER → 2023-07-23 06:58 | Outpatient (CLI) | payer OTHER, MEDICAID, SELFPAY | LOC: RESP 06:59 | PROVIDERS: PCP Family Medicine; Referring Provider Family Medicine; Visit Provider Family Medicine | DX: R07.89 Other chest pain (principal); J98.8 Other specified respiratory disorders | CPT/HCPCS: 94060; 94726; 94729 ==

== ENCOUNTER 2023-08-02 12:27 | Emergency (ER) | payer OTHER, MEDICAID, SELFPAY ==
[2023-08-02] VITALS (10 sets, daily range): BP systolic 125–158; BP diastolic 58–105; PULSE 88–116; RESP 9–43; TEMP 36.7; O2SAT 95–100; BMI 24.7
--- NOTE | 2023-08-02 12:41 | DI.RAD.S_ITS ---
PROCEDURE: XR CHEST 1V INDICATIONS: Shortness of breath TECHNIQUE: One view of the chest was acquired. COMPARISON: [facility], , CHEST 2 VIEW, 07/17/2014, 15:16. FINDINGS: Surgical changes and devices: None. Lungs and pleura: Lungs are clear. No pleural effusions or pneumothorax. Mediastinum: Mediastinal contours appear normal. Heart size is normal. Bones and chest wall: No suspicious bony lesions. Overlying soft tissues appear unremarkable. IMPRESSION: No acute cardiopulmonary abnormalities or focal airspace disease. Dictated by: Domo Muller M.D. on 08/02/2023 at 12:50 Approved by: Domo Muller M.D. on 08/02/2023 at 12:50
[2023-08-02 13:12] LABS: Add Manual Diff / Slide Review NO; Basophils Absolute Auto 100 /uL (0-100); Basophils Percent Auto 0.7 % (0-2); Eosinophils Absolute Auto 100 /uL (0-450); Eosinophils Percent Auto 0.9 % (2-4); Hematocrit 43.3 % (36-46); Hemoglobin 14.6 g/dL (12.0-16.0); Lymphocytes Absolute Auto 2800 /uL (1100-4500); Lymphocytes Percent Auto 36.9 % (25-40); Mean Corpuscular HGB Conc 33.7 % (30-36); Mean Corpuscular Hemoglobin 30.5 PG (26-34); Mean Corpuscular Volume 90.4 fL (80-100); Monocytes Absolute Auto 600 /uL (0-900); Monocytes Percent Auto 7.6 % (3-14); Neutrophils Absolute Auto 4000 /uL (1500-7000); Neutrophils Percent Auto 53.9 % (50-75); Platelet Count 261 X10^3/uL (150-400); Red Blood Cell Count 4.79 X10^6/uL (4.0-5.2); Red Cell Distribution Width 12.7 % (11.6-14.8); White Blood Cell Count 7.5 X10^3/uL (4.5-11.0)
[2023-08-02 13:18] LABS: Prothrombin Time 11.1 SECONDS (9.4-12.5)
[2023-08-02 13:25] LABS: Alanine Aminotransferase 16 IU/L (<35); Albumin 4.8 g/dL (3.5-5.0); Albumin Globulin Ratio 1.3 (1.0-2.8); Alkaline Phosphatase 36 U/L (38-126); Aspartate Aminotransferase 23 IU/L (14-36); BUN Creatinine Ratio 15.3 (6-22); Bilirubin Total 0.7 mg/dL (0.2-1.3); Blood Urea Nitrogen 11 mg/dL (7-17); Calcium 9.4 mg/dL (8.4-10.2); Carbon Dioxide 24 mmol/L (22-32); Chloride 104 mmol/L (98-107); Estimated Glomerular Filt Rate > 60 mL/min (>60); Globulin 3.6 g/dL (1.7-4.1); Glucose 95 mg/dL (70-100); HEMOLYSIS < 15 (0-50); Potassium 3.5 mmol/L (3.4-5.1); Sodium 138 mmol/L (137-145); Total Protein 8.4 g/dL (6.3-8.2)
--- NOTE | 2023-08-02 13:27 | ED.GENADULT ---
HPI - General Adult General Chief complaint: Shortness of Breath/Dyspnea Stated complaint: sob, lightheaded Time Seen by Provider: 08/02/23 13:10 Source: patient Mode of arrival: Ambulatory History of Present Illness HPI narrative: 37-year-old otherwise healthy woman on control pills he has been experiencing dyspnea, increasing fatigue, significant exertional dyspnea interfering with activities of daily living that has been increasing over the last 6 months. She notes that she did have COVID in March however her symptoms preceded the COVID diagnosis. She is followed by Dr. Zully Gonzalez and today has had an excellent workup including negative chest x-ray, pulmonary function testing done last week that does not suggest a significant reversible component possible restrictive component. Next week she has a stress test and echocardiogram scheduled in the following week a pulmonology consultation. She was at work today and found that she was having trouble walking across the room came down to the emergency room for further evaluation. She does not note any recent fevers, cough, chills. She is a lifelong nonsmoker. She has not having orthopnea, no lower extremity edema. Related Data Home Medications Medication Instructions Recorded Confirmed prenat.vits,francisco j,[id number] 1 tab PO DAILY 05/22/21 08/18/21 Previous Rx's Medication Instructions Recorded norethindrone (contraceptive) 0.35 0.35 mg PO DAILY #84 tabs 08/18/21 mg tablet (Ortho Micronor) Allergies Allergy/AdvReac Type Severity Reaction Status Date / Time citalopram [From Celexa] AdvReac Intermediate Increased Verified 08/02/23 12:40 Anxiety Review of Systems Review of Systems Narrative: Pertinent positive and negative findings as per HPI Patient History Medical History (Updated 08/02/23 @ 16:16 by Lori Horne MD) delivery, delivered labor Hiatal hernia (~2019) Herpes (~2018) Surgical History (Updated 05/22/21 @ 10:26 by Samreen Brnenan RN) H/O endoscopy (~2019) [place] teeth extracted Family History (Updated 05/22/21 @ 10:31 by Samreen Brennan RN) Father Diabetes mellitus Melanoma Mother Ovarian cancer History of hysterectomy Sister Anxiety Grandfather Hypertension Hyperlipidemia Hx of CABG Myocardial infarct Grandmother Cancer Hyperlipidemia Grandmother Leukemia Grandfather Family history unknown Social History marital status: unmarried,living together number of children: 1 household members: significant other and children (2 step children and 1 child of their own.) lives independently: Yes caregiver/support person: No housing: house pets and animals: Yes (2 cats, 1 dog: aware/safe.) education level: college (Just finished nursing degree. 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 ) substance use type: does not use during the past year weight has: increased > 10 lbs well-balanced diet: daily or most days daily servings fruits/ve or more times/day (lots: her favorite snacks are produce. ) caffeine: Yes (1 cup of tea.) Type(s) of exercise: decreased ROM & activity (modified bedrest for labor.) frequency: daily Smoking Status: Never smoker alcohol intake frequency: a few times a month Substance Use Type: does not use Exam Initial Vital Signs Initial Vital Signs: Vital Signs Temperature 98.0 F 08/02/23 12:35 Pulse Rate 116 H 08/02/23 12:35 Respiratory Rate 18 08/02/23 12:35 Blood Pressure 158/105 H 08/02/23 12:35 Pulse Oximetry 98 08/02/23 12:35 Oxygen Delivery Method Room Air 08/02/23 12:35 General: Healthy appearing, in no acute distress. Able to give a complete and coherent history. Well-nourished well-developed HEENT: Moist mucous membranes, normal sclera with reactive pupils, Neck: No JVD, supple Respiratory: Lungs are clear to auscultation, no wheezing no rales no rhonchi. Full and symmetrical air movement she seems to have increased work of breathing with inspiratory effort. There is no obvious retraction or stridor Cardiac: Regular rate and rhythm no murmurs no bruits Abdomen: Soft, nontender, good bowel tones, no flank pain Skin: Warm and dry, no rashes Neurologic: Grossly neurologically intact with no obvious asymmetries or abnormalities Extremities: No trauma, well perfused Psych: Cooperative, appropriate insight and affect Course Orders Ordered: ED Orders 08/02/23 12:41 XR chest 1V Stat EKG-12 Lead Stat Measure peak expiratory flow ONCE RT Consult Eval and Treat NOW 08/02/23 12:56 Complete Blood Count AUTO DIFF Stat Comprehensive Metabolic Panel Stat Lactate (Lactic Acid) Stat NT-proBNP (BNP-Adult 18+) Stat Prothrombin Time INR Stat Troponin I Stat 08/02/23 13:45 CT angio chest PE protocol Stat Vital Signs Vital signs: Vital Signs - 8 hr 08/02/23 12:35 08/02/23 12:57 08/02/23 12:59 Temperature 98.0 F Pulse Rate 116 H 103 H Respiratory Rate 18 Blood Pressure 158/105 H 137/102 H Pulse Oximetry 98 95 Oxygen Delivery Method Room Air 08/02/23 12:59 08/02/23 13:00 08/02/23 13:00 Temperature Pulse Rate 99 H 100 H Respiratory Rate 29 H 9 L Blood Pressure 135/93 H Pulse Oximetry 98 98 Oxygen Delivery Method 08/02/23 13:30 08/02/23 13:30 08/02/23 14:00 Temperature Pulse Rate 92 H 90 Respiratory Rate 25 H 18 Blood Pressure 125/84 Pulse Oximetry 98 100 Oxygen Delivery Method 08/02/23 14:00 08/02/23 14:30 08/02/23 15:00 Temperature Pulse Rate 96 H 90 Respiratory Rate 43 H 18 Blood Pressure 135/88 Pulse Oximetry 99 98 Oxygen Delivery Method 08/02/23 15:30 Temperature Pulse Rate 97 H Respiratory Rate 20 Blood Pressure Pulse Oximetry 97 Oxygen Delivery Method Medical Decision Making Lab Data 08/02/23 12:56 08/02/23 12:56 Labs: Lab Results 08/02/23 Range/Units 12:56 WBC 7.5 (4.5-11.0) X10^3/uL RBC 4.79 (4.0-5.2) X10^6/uL Hgb 14.6 (12.0-16.0) g/dL Hct 43.3 (36-46) % MCV 90.4 (80-100) fL MCH 30.5 (26-34) PG MCHC 33.7 (30-36) % RDW 12.7 (11.6-14.8) % Plt Count 261 (150-400) X10^3/uL Neut % (Auto) 53.9 (50-75) % Lymph % (Auto) 36.9 (25-40) % Greene % (Auto) 7.6 (3-14) % Eos % (Auto) 0.9 L (2-4) % Baso % (Auto) 0.7 (0-2) % Neut # (Auto) 4000 (1340-8453) /uL Lymph # (Auto) 2800 (2836-7369) /uL Greene # (Auto) 600 (0-900) /uL Eos # (Auto) 100 (0-450) /uL Baso # (Auto) 100 (0-100) /uL PT 11.1 (9.4-12.5) SECONDS INR 1.0 (0.9-1.3) Sodium 138 (137-145) mmol/L Potassium 3.5 (3.4-5.1) mmol/L Chloride 104 (98-107) mmol/L Carbon Dioxide 24 (22-32) mmol/L BUN 11 (7-17) mg/dL Creatinine 0.72 (0.52-1.04) mg/dL Estimated GFR > 60 (>60) mL/min BUN/Creatinine Ratio 15.3 (6-22) Glucose 95 (70-100) mg/dL Lactate 1.0 (0.7-2.1) mmol/L Calcium 9.4 (8.4-10.2) mg/dL Total Bilirubin 0.7 (0.2-1.3) mg/dL AST 23 (14-36) IU/L ALT 16 (<35) IU/L Alkaline Phosphatase 36 L (38-126) U/L Troponin I < 0.012 (0.01-0.034) ng/mL NT-Pro-B Natriuret Pep 47 (<125) pg/mL Total Protein 8.4 H (6.3-8.2) g/dL Albumin 4.8 (3.5-5.0) g/dL Globulin 3.6 (1.7-4.1) g/dL Albumin/Globulin Ratio 1.3 (1.0-2.8) MDM Narrative Medical decision making narrative: CC: Worsening exertional dyspnea Data collected from: patient Medical records reviewed: PFTs reviewed, delivery note from 2019 is reviewed Differential considered: Pulmonary embolism, pulmonary fibrosis, other restrictive lung disease, pneumothorax, pleural effusion, pericardial abnormality, cardiomyopathy Exam documented above, pertinent findings include: Exam itself is fairly unremarkable. Patient appears visibly dyspneic even after speaking with oxygen saturations remaining in the upper 90s but heart rate increasing. She visibly seems to use more respiratory muscles for inspiration but is not having actual retractions. There is no wheeze Lab Test results independently reviewed as above. Pertinent findings: CBC is unremarkable Chemistries are reassuring Independently reviewed EKG: EKG shows sinus tachycardia at 101 No acute ischemic changes Imaging studies independently reviewed: Chest x-ray is entirely benign Discussion: 37-year-old woman with more than 4 months of increasing dyspnea. It was bad enough at work today that she came in for additional evaluation. CT scan did not suggest pulmonary embolism or acute etiology otherwise. She has already had pulmonary function studies done has outpatient cardiac workup and pulmonary consult scheduled within the next week. At this point oxygen saturations are appropriate there was no life-threatening etiology found to explain her acute findings, appropriate outpatient workup as scheduled she understands reasons to return to the emergency department and is safe for discharge Discharge Plan Departure Patient Disposition: Home Clinical Impression: Acute dyspnea Instructions: DI for Shortness of Breath Activity Restrictions/Additional Instructions: Thank you for coming in Your CT angiogram does not show blood clots, pericardial abnormalities, pericardial effusion, no significant abnormalities in the lung tissue itself Your blood work is reassuring, you are not significantly anemic, kidney function liver function electrolytes are all appropriate. I think you have a great family physician to help work through the rest of the possibilities and the outpatient study scheduled all seem very appropriate. If you find that you are getting worse or develop any new symptoms, please feel free to return to the emergency department for further evaluation. Prescriptions: No Action prenat.vits,francisco j,[id number] Tablet 1 tab PO DAILY norethindrone (contraceptive) [Ortho Micronor] 0.35 mg tablet 0.35 mg PO DAILY Qty: 84 3RF Referrals: Pebbles Gonzalez MD [Primary Care Provider] - Stand Alone Forms: Patient Portal/API
[2023-08-02 13:35] LABS: NT-proBNP (BNP-Adult 18+) 47 pg/mL (<125); Troponin I < 0.012 ng/mL (0.01-0.034)
--- NOTE | 2023-08-02 13:45 | DI.CT.S_ITS ---
PROCEDURE: CT ANGIO CHEST PE PROTOCOL INDICATIONS: tachycardia, dyspnea TECHNIQUE: After the administration of intravenous contrast, 2 mm thick sections acquired from the pulmonary apices to the posterior costophrenic angles. 3-dimensional maximum intensity projection (MIP) coronal and sagittal reformats were then acquired through the thorax. For radiation dose reduction, the following was used: automated exposure control, adjustment of mA and/or kV according to patient size. COMPARISON: [facility], CT, KIDNEY/ URETER/BLADDER, 03/29/2015, 14:20. FINDINGS: Image quality: Diagnostic. Pulmonary arteries: Pulmonary arteries are normal in size, and demonstrate no intraluminal filling defects to suggest central pulmonary embolism. Lower Neck: No enlarged lymph nodes. Thyroid: No thyroid nodules which require sonographic follow up, per consensus guidelines. Axillae: No enlarged lymph nodes. Chest Wall: Unremarkable. Bones: Unremarkable. Lungs and Pleura: No pneumothorax or pleural effusions. 5 mm noncalcified pulmonary nodule, extreme left lung base, image 197/5. This is unchanged. It is consistent with a benign small pulmonary nodule. Heart: Heart size is normal. No pericardial effusion. Thoracic Vessels: No aortic aneurysm. Mediastinum and Robyn: No enlarged lymph nodes. Esophagus: No wall thickening. No hiatal hernia. Upper Abdomen: Visualized upper abdomen solid organs and bowel loops appear normal. IMPRESSION: No pulmonary embolus. No acute cardiopulmonary process. Small benign pulmonary nodule. Dictated by: Ronald Hirsch M.D. on 08/02/2023 at 14:51 Approved by: Ronald Hirsch M.D. on 08/02/2023 at 15:05
== END 2023-08-02 16:36 | disposition home or self-care (01) ==
PROVIDERS: Emergency Provider Emergency Medicine; PCP Family Medicine
DX: R06.00 Dyspnea, unspecified (principal); R00.0 Tachycardia, unspecified; Z86.16 Personal history of COVID-19
CPT/HCPCS: 36415; 71045; 71275; 80053; 83605; 83880; 84484; 85025; 85610; 93005; 99284; Q9967

== ENCOUNTER → 2023-09-17 06:46 | Outpatient (CLI) | payer OTHER, MEDICAID, SELFPAY ==
--- NOTE | 2023-09-17 06:47 | DI.ECHO.S_ITS ---
[facility]---------+ [facility] +---------+ : : [address] : : : : [id number] : : : : Phone: [phone] Echocardiogram Report + + :Name: SHRUTHI ASHFORD Study Date: 09/17/2023 Height: 62 in : :[facility] ReadingLocation: Weight: 135 lb : : Gender: Female BSA: 1.6 m2 : :: 1985 Age: 37 yrs BP: 126/90 mmHg: :Reason For Study: SHORTNESS OF BREATH : :Ordering Physician: LILIA, : :MELANIE Performed By: Osmani Corbin : :Referring: MELANIE RODRIGUES : + + Interpretation Summary Normal sinus rhythm. Normal LV size and wall thickness; normal wall motion and LV systolic function. EF is 50-55% Normal chamber sizes. No significant valvular abnormalities. No prior study available for comparison. Procedure: A two-dimensional transthoracic echocardiogram with color flow and Doppler was performed. The study quality was technically adequate. There is no prior echocardiogram noted for this patient. The patient was in normal sinus rhythm during the exam. The heart rate ranged between 70-90 bpm during the study. Left Ventricle: The left ventricle is normal in size and wall thickness. The ejection fraction is estimated to be 50-55%. Right Ventricle: The right ventricle is normal in size and function. The right ventricular systolic function is normal. Atria: The left atrial size is normal. Right atrial size is normal. The interatrial septum grossly appears intact with no obvious evidence for an atrial septal defect. Mitral Valve: The mitral valve is normal in structure and function. There is no mitral valve stenosis. There is trace mitral regurgitation. Aortic Valve: The aortic valve is trileaflet. There is no aortic valve stenosis. No aortic regurgitation is present. Tricuspid Valve: The tricuspid valve is normal in structure and function. There is no tricuspid stenosis. There is a trace or physiologic amount of tricuspid regurgitation. Pulmonic Valve: The pulmonic valve is not well visualized. There is no pulmonic valvular stenosis. There is trace pulmonic regurgitation. Great Vessels: The aortic root is normal size. The dimensions of the ascending aorta are normal. The IVC is of normal diameter and collapses greater than 50% with a sniff. This suggests a low right atrial pressure of 3 mm Hg. Pericardium/ Pleura There is no pericardial effusion. There is no pleural effusion. MMode/2D Measurements & Calculations LVIDd: 4.5 cm LVOT diam: 1.8 cm LVIDs: 3.2 cm Ao root diam: 2.6 cm FS: 28.8 % asc Aorta Diam: 2.8 cm IVSd: 0.80 cm Ao Arch Diam (Prox Trans): 2.2 cm LVPWd: 0.74 cm LV flores. diameter/BSA (cm/m^2): 2.8 LV sys. diameter/BSA (cm/m^2): 2.0 LA A2 area: 13.2 cm2 RA long axis: 3.9 cm LA A4 area: 12.6 cm2 RA area: 11.0 cm2 LA length (vol): 4.1 cm RA vol: 26.3 ml LA vol: 34.4 ml RA : 16.3 ml/m2 LA vol index: 21.3 ml/m2 IVC diam: 1.6 cm RVD1 (basal): 2.7 cm RVD2 (mid): 2.6 cm TAPSE: 2.0 cm Doppler Measurements & Calculations Ao V2 max: 136.6 cm/sec LVOT Max Jaren: 118.6 cm/sec Ao V2 mean: 101.2 cm/sec LV V1 max P.6 mmHg Ao max P.5 mmHg LV V1 VTI: 24.7 cm Ao mean P.4 mmHg KHANH(I,D): 2.4 cm2 Ao V2 VTI: 27.0 cm KHANH(V,D): 2.3 cm2 sev ratio: 0.92 KHANH indexed to BSA (cm^2/m^2): 1.5 MV E max jaren: 94.6 cm/sec PA V2 max: 114.2 cm/sec MV A max jaren: 52.5 cm/sec PA V2 mean: 75.4 cm/sec MV E/A: 1.8 PA mean P.5 mmHg Med Peak E' Jaren: 8.8 cm/sec PA pr(Accel): 25.9 mmHg E/E' med: 10.7 Lat Peak E' Jaren: 12.3 cm/sec E/E' lat: 7.7 E/e' average: 9.2 MV dec time: 0.20 sec SV(LVOT): 65.9 ml Electronically signed by: Stephanie Macario M.D. on Reading Physician:09/18/2023 01:06 AM
== END ==
LOC: ECHO 06:46
PROVIDERS: PCP Family Medicine; Referring Provider Internal Medicine Critical Care Medicine; Visit Provider Internal Medicine Critical Care Medicine
DX: R06.02 Shortness of breath (principal)
CPT/HCPCS: 93306

== ENCOUNTER → 2024-04-25 12:02 | Outpatient (CLI) | payer OTHER, SELFPAY | PROVIDERS: PCP Family Medicine; Referring Provider Internal Medicine; Visit Provider Internal Medicine | DX: Z23 Encounter for immunization (principal) | CPT/HCPCS: 90471; 90656 ==

== ENCOUNTER → 2024-08-31 09:27 | Outpatient (CLI) | payer OTHER, SELFPAY ==
--- NOTE | 2024-08-31 09:28 | DI.US.S_ITS ---
PROCEDURE: US PELVIC COMPLETE INDICATIONS: PELVIC PAIN TECHNIQUE: Real-time scanning was performed of the pelvic organs, with image documentation. Additional endovaginal scanning was necessary due to incomplete visualization of the adnexal and endometrial structures by transabdominal scanning. COMPARISON: [facility], US, US PELVIC COMPLETE, 07/28/2022, 6:58. FINDINGS: Uterus: Uterus is anteverted and normal in size at 8.2 x 4.7 x 6.7 cm. The myometrium is heterogeneous with posterior vertical shadowing. The endometrium measures 3.9 mm combined thickness. Ovaries: The right ovary measures 1.7 x 3.1 x 1.2 cm, with a calculated ovarian volume of 3.3 cc. The left ovary measures 1.2 x 2.5 x 1.4 cm, with a calculated ovarian volume of 2.2 cc. The ovaries have a normal sonographic appearance. Less than 12 follicles can be seen in each ovary. No adnexal masses are seen. Other: No pathologic free abdominal or pelvic fluid. IMPRESSION: 1. Heterogeneous myometrium, which is nonspecific but can be seen in setting of adenomyosis. 2. No acute sonographic abnormality. Approved by: Simone Pnia M.D. on 08/31/2024 at 12:23
== END ==
PROVIDERS: PCP Family Medicine; Referring Provider Family Medicine; Visit Provider Family Medicine
DX: R10.2 Pelvic and perineal pain (principal)
CPT/HCPCS: 76830; 76856